=== PATIENT | male | born 1990 | race African-American/Black ===

== ENCOUNTER 2020-10-20 23:58 | Emergency (ER) | payer OTHER ==
[~2020-10-20] VITALS: Ht 177.8 cm; Wt 96.6 kg
[2020-10-21 00:10] VITALS: BP 136/84
--- NOTE | 2020-10-21 00:10 | NUR ---
to bed ambulatory
--- NOTE | 2020-10-21 00:18 | NUR ---
30 Y.O MALE PRESENTS TO THE ED WITH PAINFUL URINATING, ITCHINESS ON THE SHAFT, AND POSSIBLE STD. ITCHINESS STARTED 2 DAYS AGO AND PAINFUL URINATING STARTED 10/20/20. NO SWELLING, DISCHARGE, REDNESS, AND FOUL SMELL OF THE PENIS. SKIN IS PINK/WARM/DRY; AAOX4 WITH EVEN AND STEADY GAIT; PATIENT DENIES PAIN AT THIS TIME; VSS; PATIENT POSITIONED FOR COMFORT; HOB ELEVATED; BEDRAILS UP X2; BED DOWN. ER MD MADE AWARE OF PT STATUS. PMH: CHLAMYDIA ALLERGIES: NKA
--- NOTE | 2020-10-21 00:22 | NUR ---
URINE DONE AND RECEIVED BY ANTOINETTE, LAB
[2020-10-21 00:26] LABS: APPEARANCE,URINE SL CLOUDY (CLEAR); BILIRUBIN,URINE NEGATIVE (NEGATIVE); BLOOD, URINE NEGATIVE (NEGATIVE); COLOR,URINE YELLOW (YELLOW); LEUKOCYTE ESTERASE ,URINE NEGATIVE (NEGATIVE); NITRITE, URINE NEGATIVE (NEGATIVE); UGLUCOSE NEGATIVE (NEGATIVE)
--- NOTE | 2020-10-21 00:30 | NUR ---
Dr. Starks examining patient.
[2020-10-21] MEDS ORDERED: AZITHROMYCIN 250 MG TAB PO ONE (00:50)
[2020-10-21] MEDS ORDERED: cefTRIAXone 1,000 MG in LIDOCAINE MPF 1% 2.1 ML IM ONE (00:50)
[2020-10-21] MEDS ORDERED: cefTRIAXone 1,000 MG VIAL ONE (00:55)
[2020-10-21] MEDS ORDERED: LIDOCAINE MPF 1% 5 ML ONE (00:56)
[2020-10-21] MEDS ORDERED: CEPH500T PO (00:58)
--- NOTE | 2020-10-21 01:00 | NUR ---
Patient on the phone and appears to be resting comfortably in bed. Respirations even and unlabored.
[2020-10-21 01:18] VITALS: BP 136/84
== END 2020-10-21 01:18 | disposition home or self-care (01) ==
LOC: MED 23:58
DX: R30.0 Dysuria (principal); Z79.899 Other long term (current) drug therapy
CPT/HCPCS: 36415; 81003; 87491; 96372; 99283; J0696; J2001